=== PATIENT | male | born 1955 | race Caucasian/White ===

== ENCOUNTER → 2017-01-26 | Outpatient (CLI) | payer BC ==
--- NOTE | 2017-01-26 15:01 | CR ---
EXAMINATION: Left shoulder HISTORY: Pain COMPARISON: None TECHNIQUE: 3 views FINDINGS/IMPRESSION: No acute osseous abnormality, dislocation, or fracture identified. Bone mineral ization appears normal. Mild acromioclavicular and glenohumeral osteophytic changes.
== END ==
LOC: MW.CHORTHO 07:38
PROVIDERS: ATTEND Orthopaedic Surgery
DX: M25.512 Pain in left shoulder (principal); M25.712 Osteophyte, left shoulder
CPT/HCPCS: 73030-26-LT; 73030-LT

== ENCOUNTER 2017-08-11 14:57 | Emergency (ER) | payer BC ==
[2017-08-11] MEDS ORDERED: Sodium Chloride 0.9% 1,000 ML IV ONE ×2 (15:07→16:04)
--- NOTE | 2017-08-11 15:08 | EDM.PDOC ---
ED HPI GENERAL MEDICAL PROBLEM - General Stated Complaint: HIGH BP Time Seen by Provider: 08/11/17 15:07 Source of Information: Reports: Patient - History of Present Illness INITIAL COMMENTS - FREE TEXT/NARRATIVE: HISTORY AND PHYSICAL: History of present illness: [Patient presents from the clinic where he was at a visit for depression his blood pressure is noted at 77/50. No other symptoms such as fever nausea vomiting chills sweats no chest pain shortness breath headache dizziness palpitation about a urine symptoms He is on some antihypertensive medications and tamsulosin he is been on these for some time and has been stable, he had dry lips and oral mucosa fluid hydration was provided here in the ER and patient is offered an admission observation to see if needs medication adjustment he was mildly dehydrated but patient refuses admission as he has no other symptoms his blood pressure is straight without orthostatics are on file. ] Review of systems: As per history of present illness and below otherwise all systems reviewed and negative. Past medical history: As per history of present illness and as reviewed below otherwise noncontributory. Surgical history: As per history of present illness and as reviewed below otherwise noncontributory. Social history: No reported history of drug or alcohol abuse. Family history: As per history of present illness and as reviewed below otherwise noncontributory. Physical exam: HEENT: Atraumatic, normocephalic, pupils reactive, negative for conjunctival pallor or scleral icterus, mucous membranes moist, throat clear, neck supple, nontender, trachea midline. Lungs: Clear to auscultation, breath sounds equal bilaterally, chest nontender. Heart: S1S2, regular, negative for clicks, rubs, or JVD. Abdomen: Soft, nondistended, nontender. Negative for masses or hepatosplenomegaly. Negative for costovertebral tenderness. Pelvis: Stable nontender. Genitourinary: Deferred. Rectal: Deferred. Extremities: Atraumatic, negative for cords or calf pain. Neurovascular unremarkable. Neuro: Awake, alert, oriented. Cranial nerves II through XII unremarkable. Cerebellum unremarkable. Motor and sensory unremarkable throughout. Exam nonfocal. Diagnostics: []Lab as below EKG Chest 1 view Therapeutics: []Liter normal saline bolus Patient refuses hospital admission at this time stating he will return if any symptoms develop Impression: Hypo-hypotension resolved Mild dehydration Definitive disposition and diagnosis as appropriate pending reevaluation and review of above. - Related Data Allergies Allergy/AdvReac Type Severity Reaction Status Date / Time No Known Allergies Allergy Verified 04/11/16 14:22 Home Meds: Home Meds Aspirin [Children's Aspirin] 81 mg PO DAILY 08/11/17 [History] Buprenorphine HCl/Naloxone HCl [Suboxone 4 mg-1 mg Sl Film] 300 mg PO BID [History] Gabapentin [Neurontin] 300 mg PO BID 08/11/17 [History] Losartan/Hydrochlorothiazide [Losartan-HCTZ 100-12.5 MG] 1 tab PO DAILY [History] Melatonin 3 mg PO DAILY 08/11/17 [History] QUEtiapine Fumarate [Quetiapine Fumarate] 75 mg PO BID 08/11/17 [History] Simvastatin [Zocor] 20 mg PO DAILY 08/11/17 [History] Tamsulosin Hcl [IJD: Tamsulosin HCl] 1 tab PO DAILY 08/11/17 [History] ED ROS GENERAL - Review of Systems Review Of Systems: ROS reveals no pertinent complaints other than HPI. ED EXAM, GENERAL - Physical Exam Exam: See Below Course - Vital Signs Last Recorded V/S: Last Vital Signs Temp 98.3 F 08/11/17 15:22 Pulse 76 08/11/17 16:36 Resp 12 08/11/17 16:36 BP 103/65 08/11/17 16:36 Pulse Ox 96 08/11/17 16:36 Orthostatic Blood Pressure [ 116/73 Standing] Orthostatic Blood Pressure [ 106/71 Sitting] Orthostatic Blood Pressure [ 115/74 Supine] - Orders/Labs/Meds Orders: Active Orders 24 hr Category Date Time Status EKG Documentation Completion [RC] STAT Care 08/11/17 15:10 Active Orthostatic Vital Signs [RC] ASDIRECTED Care 08/11/17 16:30 Active Chest 1V Frontal [CR] Stat Exams 08/11/17 15:10 Taken CULTURE BLOOD [BC] Stat Lab 08/11/17 15:16 Received CULTURE BLOOD [BC] Stat Lab 08/11/17 15:26 Received UA W/MICROSCOPIC [URIN] Stat Lab 08/11/17 15:05 Uncollected Blood Culture x2 Reflex Set [OM.PC] Stat Oth 08/11/17 15:05 Ordered Labs: Laboratory Tests 08/11/17 08/11/17 08/11/17 Range/Units 15:16 15:16 15:16 WBC 6.31 (4.0-11.0) K/uL RBC 4.36 L (4.50-5.90) M/uL Hgb 13.4 (13.0-17.0) g/dL Hct 41.2 (38.0-50.0) % MCV 94.5 (80.0-98.0) fL MCH 30.7 (27.0-32.0) pg MCHC 32.5 (31.0-37.0) g/dL RDW Std Deviation 44.8 (28.0-62.0) fl RDW Coeff of [place] 13 (11.0-15.0) % Plt Count 254 (150-400) K/uL MPV 9.70 (7.40-12.00) fL Neut % (Auto) 57.5 (48.0-80.0) % Lymph % (Auto) 26.5 (16.0-40.0) % [place] % (Auto) 10.9 (0.0-15.0) % Eos % (Auto) 4.8 (0.0-7.0) % Baso % (Auto) 0.3 (0.0-1.5) % Neut # (Auto) 3.6 (1.4-5.7) K/uL Lymph # (Auto) 1.7 (0.6-2.4) K/uL [place] # (Auto) 0.7 (0.0-0.8) K/uL Eos # (Auto) 0.3 (0.0-0.7) K/uL Baso # (Auto) 0.0 (0.0-0.1) K/uL Nucleated RBC % 0.0 /100WBC Nucleated RBCs # 0 K/uL Lactate 1.3 (0.20-2.00) mmol/L Sodium 139 (136-146) mmol/L Potassium 4.2 (3.5-5.1) mmol/L Chloride 102 (98-110) mmol/L Carbon Dioxide 28 (21-31) mmol/L BUN 16 (6.0-23.0) mg/dL Creatinine 1.1 (0.6-1.5) mg/dL Est Cr Clr Drug Dosing TNP Estimated GFR (MDRD) > 60.0 ml/min Glucose 96 (60-110) mg/dL Calcium 9.3 (8.8-10.8) mg/dL Total Bilirubin 0.5 (0.1-1.5) mg/dL AST 16 (5-40) IU/L ALT 15 (8-54) IU/L Alkaline Phosphatase 53 (40-150) Creatine Kinase 127 (9-236) IU/L CK-MB (CK-2) 1.7 (0-6.6) ng/ml Troponin I < 0.10 (0.0-0.29) NG/ML Total Protein 6.9 (6.0-8.0) g/dL Albumin 4.1 (3.4-4.8) g/dL Globulin 2.8 (2.0-3.5) g/dL Albumin/Globulin Ratio 1.5 (1.3-2.8) Meds: Medications Discontinued Medications Generic Name Dose Route Start Last Admin Trade Name Freq PRN Reason Stop Dose Admin Sodium Chloride 1,000 mls @ 999 mls/hr 08/11/17 15:07 08/11/17 16:31 Normal Saline IV 08/11/17 16:07 999 mls/hr STAT ONE Administration Sodium Chloride 1,000 mls @ 999 mls/hr 08/11/17 16:04 08/11/17 16:32 Normal Saline IV 08/11/17 17:04 999 mls/hr STAT ONE Administration Departure - Departure Time of Disposition: 17:41 Disposition: Home, Self-Care 01 Condition: Good, Fair Clinical Impression: Hypotension, Dehydration - Discharge Information Referrals: Sarah Norman [employer] [Primary Care Provider] - Additional Instructions: Fluid hydration techniques as discussed Follow-up with her primary care within 2 weeks for reevaluation Return to the emergency room if symptoms persist or worsen or new concerning symptoms develop The following information is given to patients seen in the emergency department who are being discharged to home. This information is to outline your options for follow-up care. We provide all patients seen in our emergency department with a follow-up referral. The need for follow-up, as well as the timing and circumstances, are variable depending upon the specifics of your emergency department visit. If you don't have a primary care physician on staff, we will provide you with a referral. We always advise you to contact your personal physician following an emergency department visit to inform them of the circumstance of the visit and for follow-up with them and/or the need for any referrals to a consulting specialist. The emergency department will also refer you to a specialist when appropriate. This referral assures that you have the opportunity for follow-up care with a specialist. All of these measure are taken in an effort to provide you with optimal care, which includes your follow-up. Under all circumstances we always encourage you to contact your private physician who remains a resource for coordinating your care. When calling for follow-up care, please make the office aware that this follow-up is from your recent emergency room visit. If for any reason you are refused follow-up, please contact the [facility] emergency department at and asked to speak to the emergency department charge nurse. - My Orders Last 24 Hours: My Active Orders 08/11/17 15:05 UA W/MICROSCOPIC [URIN] Stat Blood Culture x2 Reflex Set [OM.PC] Stat 08/11/17 15:10 EKG Documentation Completion [RC] STAT Chest 1V Frontal [CR] Stat 08/11/17 15:16 CULTURE BLOOD [BC] Stat 08/11/17 15:26 CULTURE BLOOD [BC] Stat 08/11/17 16:30 Orthostatic Vital Signs [RC] ASDIRECTED - Assessment/Plan Last 24 Hours: My Active Orders 08/11/17 15:05 UA W/MICROSCOPIC [URIN] Stat Blood Culture x2 Reflex Set [OM.PC] Stat 08/11/17 15:10 EKG Documentation Completion [RC] STAT Chest 1V Frontal [CR] Stat 08/11/17 15:16 CULTURE BLOOD [BC] Stat 08/11/17 15:26 CULTURE BLOOD [BC] Stat 08/11/17 16:30 Orthostatic Vital Signs [RC] ASDIRECTED
[2017-08-11 15:53] LABS: CHLORIDE,CL 102 mmol/L (98-110); SODIUM,NA 139 mmol/L (136-146)
--- NOTE | 2017-08-13 05:53 | CR ---
EXAM DATE: 08/11/17 PATIENT'S AGE: 62 Patient: DAVE WEISS Facility: [place], [place] Site . Site : [id number] Study: XRay Chest [id number] 3:56:06 PM Ordering Physician: Gaviota Dickerson Final Report: INDICATION: Hypertension TECHNIQUE: Chest 1 view. COMPARISON: None FINDINGS: Cardiovascular and mediastinum: Heart size and vasculature are normal in caliber and appearance. Mediastinum is within normal limits. Lungs and pleural space: Minimal atelectasis left lower lobe. No sign of infiltrate or mass. No sign of pleural effusion. No pneumothorax. Bones and soft tissues: No significant findings. IMPRESSION: Unremarkable chest. Dictated by Edson Erazo MD @ 08/11/2017 4:06:52 PM Dictated by: Edson Erazo MD @ 08/11/2017 16:07:25 (Electronic Signature) Report Signed by Proxy. [facility]
== END 2017-08-11 17:59 | disposition home or self-care (01) ==
LOC: MW.ED 14:57
DX: I95.9 Hypotension, unspecified (principal); E86.0 Dehydration; Z79.82 Long term (current) use of aspirin; Z79.899 Other long term (current) drug therapy
CPT/HCPCS: 36415; 71010; 80053; 81001; 82550; 82553; 83605; 84484; 85025; 87040; 93005; 96360; 96361; 99285; J7040; 87077; 87186; 99283

== ENCOUNTER 2017-08-12 11:42 | Observation (INO) | payer BC ==
--- NOTE | 2017-08-12 11:55 | EDM.PDOC ---
ED HPI GENERAL MEDICAL PROBLEM - General Stated Complaint: LAB Time Seen by Provider: 08/12/17 11:53 Source of Information: Reports: Patient History Limitations: Reports: No Limitations - History of Present Illness INITIAL COMMENTS - FREE TEXT/NARRATIVE: HISTORY AND PHYSICAL: []62-year-old male who presented yesterday for hypotension given fluids diagnosed with dehydration History of Present Illness: []What cultures today are returned for gram positive cocci Review of Systems: As per history of present illness and below otherwise all systems reviewed and negative. Past medical history: As per history of present illness and as reviewed below otherwise noncontributory. Surgical history: As per history of present illness and as reviewed below otherwise noncontributory. Social history: No reported history of drug or alcohol abuse. Family history: As per history of present illness and as reviewed below otherwise noncontributory. Physical exam: Alert and oriented male. Answering questions appropriately in full sentences denies any difficulties. HEENT: Atraumatic, normocehpalic, pupils reactive, negative for conjunctival pallor or scleral icterus, mucous membranes dry. throat clear, neck supple, nontender, trachea midline. Lungs: Clear to auscultation, breath sounds equal bilaterally, chest non tender. Heart: S1S2, regular, negative for clicks, rubs, or JVD. Abdomen: Soft, nondistended, nontender. Negative for masses or hepatossplenmegaly. Negative for costovertebral tenderness. Pelvis: Stable nontender. Genitourinary: Deferred. Rectal: Deferred Extremities: Atraumatic, negative for cords or calf pain. Neurovascular unremarkable. Neuro: Awake, alert, oriented. Cranial nerves II through XII unremarkable. Cerebellum unremarkable. Motor and sensory unremarkable throughout. Exam nonfocal. Have consulted with Dr. Mathis guarding this patient and his call back will go ahead and obtain blood cultures chemistry lactic acid Levaquin will be given IV and reevaluate closely Zosyn will be given IV Discussed this case with the hospitalist Dr. Solorzano has agreed to refer to observation on this patient Diagnostics: []CBC CMP lactic acid blood cultures 2 Therapeutics: [500 fluid] Levaquin 750 IV Impression: [Bacteremia Rule out sepsis] Plan: [Refer for observation on telemetry] Definitive disposition and diagnosis as appropriate pending reevaluation and review of above. Duration: Day(s): - Related Data Allergies Allergy/AdvReac Type Severity Reaction Status Date / Time No Known Allergies Allergy Verified 08/12/17 12:19 Home Meds: Home Meds Aspirin [Children's Aspirin] 81 mg PO DAILY 08/11/17 [History] Buprenorphine HCl/Naloxone HCl [Suboxone 4 mg-1 mg Sl Film] 300 mg PO BID [History] Gabapentin [Neurontin] 300 mg PO BID 08/11/17 [History] Losartan/Hydrochlorothiazide [Losartan-HCTZ 100-12.5 MG] 1 tab PO DAILY [History] Melatonin 3 mg PO DAILY 08/11/17 [History] QUEtiapine Fumarate [Quetiapine Fumarate] 75 mg PO BID 08/11/17 [History] Simvastatin [Zocor] 20 mg PO DAILY 08/11/17 [History] Tamsulosin Hcl [IJD: Tamsulosin HCl] 1 tab PO DAILY 08/11/17 [History] Past Medical History Cardiovascular History: Reports: High Cholesterol, Hypertension Genitourinary History: Reports: BPH Musculoskeletal History: Reports: Back Pain, Chronic Psychiatric History: Reports: Depression Social & Family History - Family History Family Medical History: Noncontributory - Caffeine Use Caffeine Use: Reports: None - Recreational Drug Use Recreational Drug Use: No ED ROS GENERAL - Review of Systems Review Of Systems: ROS reveals no pertinent complaints other than HPI. ED EXAM, GENERAL - Physical Exam Exam: See Below Course - Vital Signs Last Recorded V/S: Last Vital Signs Temp 36.6 C 08/12/17 12:05 Pulse 78 08/12/17 13:25 Resp 18 08/12/17 13:25 BP 100/70 08/12/17 13:25 Pulse Ox 96 08/12/17 13:25 - Orders/Labs/Meds Orders: Active Orders 24 hr Category Date Time Status CULTURE BLOOD [BC] Stat Lab 08/12/17 12:21 Received CULTURE BLOOD [BC] Stat Lab 08/12/17 12:27 Received CULTURE URINE [RM] Stat Lab 08/12/17 13:00 Received Blood Culture x2 Reflex Set [OM.PC] Stat Oth 08/12/17 12:02 Ordered Labs: Laboratory Tests 08/12/17 08/12/17 08/12/17 Range/Units 12:04 12:04 12:04 WBC 5.57 (4.0-11.0) K/uL RBC 4.30 L (4.50-5.90) M/uL Hgb 13.3 (13.0-17.0) g/dL Hct 41.0 (38.0-50.0) % MCV 95.3 (80.0-98.0) fL MCH 30.9 (27.0-32.0) pg MCHC 32.4 (31.0-37.0) g/dL RDW Std Deviation 45.1 (28.0-62.0) fl RDW Coeff of [place] 13 (11.0-15.0) % Plt Count 249 (150-400) K/uL MPV 10.10 (7.40-12.00) fL Neut % (Auto) 52.8 (48.0-80.0) % Lymph % (Auto) 30.3 (16.0-40.0) % [place] % (Auto) 9.7 (0.0-15.0) % Eos % (Auto) 6.3 (0.0-7.0) % Baso % (Auto) 0.9 (0.0-1.5) % Neut # (Auto) 2.9 (1.4-5.7) K/uL Lymph # (Auto) 1.7 (0.6-2.4) K/uL [place] # (Auto) 0.5 (0.0-0.8) K/uL Eos # (Auto) 0.4 (0.0-0.7) K/uL Baso # (Auto) 0.1 (0.0-0.1) K/uL Nucleated RBC % 0.0 /100WBC Nucleated RBCs # 0 K/uL Lactate 2.5 H (0.20-2.00) mmol/L Sodium 142 (136-146) mmol/L Potassium 4.2 (3.5-5.1) mmol/L Chloride 105 (98-110) mmol/L Carbon Dioxide 28 (21-31) mmol/L BUN 12 (6.0-23.0) mg/dL Creatinine 0.8 (0.6-1.5) mg/dL Est Cr Clr Drug Dosing 97.59 mL/min Estimated GFR (MDRD) > 60.0 ml/min Glucose 102 (60-110) mg/dL Calcium 9.2 (8.8-10.8) mg/dL Total Bilirubin 0.3 (0.1-1.5) mg/dL AST 15 (5-40) IU/L ALT 15 (8-54) IU/L Alkaline Phosphatase 59 (40-150) Total Protein 6.8 (6.0-8.0) g/dL Albumin 4.0 (3.4-4.8) g/dL Globulin 2.8 (2.0-3.5) g/dL Albumin/Globulin Ratio 1.4 (1.3-2.8) Urine Color Urine Appearance Urine pH (5.0-8.0) Ur Specific [place] (1.001-1.035) Urine Protein (NEGATIVE) mg/dL Urine Glucose (UA) (NEGATIVE) mg/dL Urine Ketones (NEGATIVE) mg/dL Urine Occult Blood (NEGATIVE) Urine Nitrite (NEGATIVE) Urine Bilirubin (NEGATIVE) Urine Urobilinogen (<2.0) EU/dL Ur Leukocyte Esterase (NEGATIVE) Urine RBC (0-2/HPF) Urine WBC (0-5/HPF) Ur Epithelial Cells (NONE-FEW) Urine Bacteria (NEGATIVE) 08/12/17 Range/Units 13:00 WBC (4.0-11.0) K/uL RBC (4.50-5.90) M/uL Hgb (13.0-17.0) g/dL Hct (38.0-50.0) % MCV (80.0-98.0) fL MCH (27.0-32.0) pg MCHC (31.0-37.0) g/dL RDW Std Deviation (28.0-62.0) fl RDW Coeff of [place] (11.0-15.0) % Plt Count (150-400) K/uL MPV (7.40-12.00) fL Neut % (Auto) (48.0-80.0) % Lymph % (Auto) (16.0-40.0) % [place] % (Auto) (0.0-15.0) % Eos % (Auto) (0.0-7.0) % Baso % (Auto) (0.0-1.5) % Neut # (Auto) (1.4-5.7) K/uL Lymph # (Auto) (0.6-2.4) K/uL [place] # (Auto) (0.0-0.8) K/uL Eos # (Auto) (0.0-0.7) K/uL Baso # (Auto) (0.0-0.1) K/uL Nucleated RBC % /100WBC Nucleated RBCs # K/uL Lactate (0.20-2.00) mmol/L Sodium (136-146) mmol/L Potassium (3.5-5.1) mmol/L Chloride (98-110) mmol/L Carbon Dioxide (21-31) mmol/L BUN (6.0-23.0) mg/dL Creatinine (0.6-1.5) mg/dL Est Cr Clr Drug Dosing mL/min Estimated GFR (MDRD) ml/min Glucose (60-110) mg/dL Calcium (8.8-10.8) mg/dL Total Bilirubin (0.1-1.5) mg/dL AST (5-40) IU/L ALT (8-54) IU/L Alkaline Phosphatase (40-150) Total Protein (6.0-8.0) g/dL Albumin (3.4-4.8) g/dL Globulin (2.0-3.5) g/dL Albumin/Globulin Ratio (1.3-2.8) Urine Color YELLOW Urine Appearance CLEAR Urine pH 6.5 (5.0-8.0) Ur Specific [place] <= 1.005 (1.001-1.035) Urine Protein NEGATIVE (NEGATIVE) mg/dL Urine Glucose (UA) NEGATIVE (NEGATIVE) mg/dL Urine Ketones NEGATIVE (NEGATIVE) mg/dL Urine Occult Blood NEGATIVE (NEGATIVE) Urine Nitrite NEGATIVE (NEGATIVE) Urine Bilirubin NEGATIVE (NEGATIVE) Urine Urobilinogen 0.2 (<2.0) EU/dL Ur Leukocyte Esterase NEGATIVE (NEGATIVE) Urine RBC 0-2 (0-2/HPF) Urine WBC NONE SEEN (0-5/HPF) Ur Epithelial Cells RARE (NONE-FEW) Urine Bacteria RARE (NEGATIVE) Meds: Medications Discontinued Medications Generic Name Dose Route Start Last Admin Trade Name Freq PRN Reason Stop Dose Admin Sodium Chloride 500 mls @ 999 mls/hr 08/12/17 11:59 08/12/17 12:12 Normal Saline IV 08/12/17 12:29 999 mls/hr STAT ONE Administration Levofloxacin/Dextrose 750 mg/ 150 mls @ 100 mls/hr 08/12/17 12:00 08/12/17 12 :11 Premix IV 08/12/17 13:29 100 mls/hr ONETIME ONE Administration Departure - Departure Time of Disposition: 14:24 Disposition: Refer to Observation Condition: Good Clinical Impression: Bacteremia Hypotension Qualifiers: Hypotension type: unspecified hypotension type Qualified Code(s): I95.9 - Hypotension, unspecified - Discharge Information - My Orders Last 24 Hours: My Active Orders 08/12/17 12:02 Blood Culture x2 Reflex Set [OM.PC] Stat 08/12/17 12:21 CULTURE BLOOD [BC] Stat 08/12/17 12:27 CULTURE BLOOD [BC] Stat 08/12/17 13:00 CULTURE URINE [RM] Stat - Assessment/Plan Last 24 Hours: My Active Orders 08/12/17 12:02 Blood Culture x2 Reflex Set [OM.PC] Stat 08/12/17 12:21 CULTURE BLOOD [BC] Stat 08/12/17 12:27 CULTURE BLOOD [BC] Stat 08/12/17 13:00 CULTURE URINE [RM] Stat
[2017-08-12] MEDS ORDERED: Sodium Chloride 0.9% 500 ML IV ONE (11:59)
[2017-08-12] MEDS ORDERED: Levofloxacin/Dextrose 5%-Water 750 MG in Premix Bag 1 BAG IV ONE (12:00)
[2017-08-12 12:33] LABS: CHLORIDE,CL 105 mmol/L (98-110); SODIUM,NA 142 mmol/L (136-146)
[2017-08-12] MEDS ORDERED: Piperacillin/Tazobactam 3.375 GM in Sodium Chloride 0.9% 50 ML IV ONE (14:20)
--- NOTE | 2017-08-12 17:14 | PCM.HP ---
H&P History of Present Illness - General Date of Service: 08/12/17 Admit Problem/Dx: Admission Diagnosis/Problem Admission Diagnosis/Problem Hypotension determined by examination Source of Information: Patient, Provider - History of Present Illness Initial Comments - Free Text/Narative: Patient is a 62 y old man wit PMHx of psych disorder and opioid abuse , currently on treatment with suboxane and multiple psych medications was sent to Er by his doctor due to hypotension in the 80' in the office , patient also stated he was feeling very lightheaded throughout the day . In Er patient had work up for sepsis that was negative , blood cultures were drawn and he was given Iv fluids. Today Microbiology lab called because patient grew in one bottle gram positive cocci in chains and he was asked to come back. Patient was found to have lactate of 2.5 .He is also c/o feeling cold. Patient was given in ER iv levaquin and zosyn. denies any pain Pain Score (Numeric/FACES): 0 - Related Data Allergies/Adverse Reactions: Allergies Allergy/AdvReac Type Severity Reaction Status Date / Time No Known Allergies Allergy Verified 08/12/17 12:19 Home Medications: Home Meds Aspirin [Children's Aspirin] 81 mg PO DAILY 08/11/17 [History] Melatonin 3 mg PO DAILY 08/11/17 [History] QUEtiapine Fumarate [Quetiapine Fumarate] 75 mg PO BID 08/11/17 [History] Simvastatin [Zocor] 20 mg PO BEDTIME 08/11/17 [History] Tamsulosin Hcl [IJD: Tamsulosin HCl] 0.4 mg PO DAILY 08/11/17 [History] ARIPiprazole [Aripiprazole] 10 mg PO DAILY 08/12/17 [History] Buprenorphine HCl/Naloxone HCl [Buprenorphn-Naloxn 2-0.5 mg Sl] 0.5 tab SL DAILY 08/12/17 [History] Gabapentin [Neurontin] 600 mg PO BID 08/12/17 [History] Losartan [Cozaar] 100 mg PO DAILY 08/12/17 [History] Mirtazapine [Mirtazapine] 30 mg PO BEDTIME 08/12/17 [History] Past Medical History HEENT History: Reports: None Cardiovascular History: Reports: High Cholesterol, Hypertension Respiratory History: Reports: None Gastrointestinal History: Reports: None Genitourinary History: Reports: BPH Musculoskeletal History: Reports: Back Pain, Chronic Neurological History: Reports: None Psychiatric History: Reports: Depression Endocrine/Metabolic History: Reports: None Hematologic History: Reports: None Immunologic History: Reports: None Oncologic (Cancer) History: Reports: None Dermatologic History: Reports: None - Infectious Disease History Infectious Disease History: Reports: None - Past Surgical History Head Surgeries/Procedures: Reports: None Social & Family History - Family History Family Medical History: Noncontributory - Tobacco Use Smoking Status *Q: Never Smoker Used Tobacco, but Quit: No Second Hand Smoke Exposure: No - Caffeine Use Caffeine Use: Reports: Coffee - Recreational Drug Use Recreational Drug Use: No H&P Review of Systems - Review of Systems: Review Of Systems: See Below General: Reports: Other (feeling cold) HEENT: Reports: No Symptoms Pulmonary: Reports: No Symptoms Cardiovascular: Reports: No Symptoms Gastrointestinal: Reports: No Symptoms Genitourinary: Reports: No Symptoms Musculoskeletal: Reports: No Symptoms Skin: Reports: No Symptoms Psychiatric: Reports: Other (flat affect) Immunologic: Reports: No Symptoms Exam - Exam Exam: See Below - Vital Signs Vital Signs: Last Vital Signs Temp 97.8 F 08/12/17 12:05 Pulse 78 08/12/17 13:25 Resp 18 08/12/17 13:25 BP 100/70 08/12/17 13:25 Pulse Ox 96 08/12/17 13:25 Weight: 176 lb 12.972 oz - Exam General: Alert, Oriented HEENT: Conjunctiva Clear, EACs Clear, EOMI Neck: Supple, Trachea Midline Lungs: Clear to Auscultation, Normal Respiratory Effort Cardiovascular: Regular Rate, Regular Rhythm, Normal S1, Normal S2 GI/Abdominal Exam: Normal Bowel Sounds, Soft, Non-Tender Extremities: Normal Inspection Skin: Warm, Dry Neurological: Cranial Nerves Intact Neuro Extensive - Mental Status: Alert, Oriented x3, Normal Mood/Affect, Normal Cognition Neuro Extensive - Motor, Sensory, Reflexes: CN II-XII Intact, Normal Gait Psychiatric: Alert, Normal Affect, Normal Mood - Patient Data Result Diagrams: 08/12/17 12:04 08/12/17 12:04 EKG INTERPRETATION EKG Date: 08/12/17 *Q Meaningful Use (ADM) - VTE *Q VTE Criteria *Q: - Stroke *Q Stroke Criteria *Q: - AMI *Q AMI Criteria *Q: - Problem List (1) Positive blood cultures SNOMED Code(s): 739716215 ICD Code: R78.81 - BACTEREMIA Status: Acute Current Visit: Yes (2) Blood culture positive for microorganism SNOMED Code(s): 5242729911399101 ICD Code: R79.89 - OTHER SPECIFIED ABNORMAL FINDINGS OF BLOOD CHEMISTRY Status: Acute Current Visit: Yes (3) Elevated lactic acid level SNOMED Code(s): 6081866 ICD Code: R79.89 - OTHER SPECIFIED ABNORMAL FINDINGS OF BLOOD CHEMISTRY Status: Acute Current Visit: Yes Problem List Initiated/Reviewed/Updated: Yes Orders Last 24hrs: Active Orders 24 hr Category Date Time Status Patient Status [ADT] Routine ADT 08/12/17 17:07 Active Antiembolic Devices [RC] PER UNIT ROUTINE Care 08/12/17 17:11 Active Bedrest Bathroom Privileges [RC] ASDIRECTED Care 08/12/17 17:07 Active Oxygen Therapy [RC] PRN Care 08/12/17 17:07 Active Pulse Oximetry [RC] PRN Care 08/12/17 17:09 Active Telemetry Monitoring [Cardiac Monitoring] [RC] Q8H Care 08/12/17 14:32 Active VTE/DVT Education [RC] PER UNIT ROUTINE Care 08/12/17 17:07 Active Vital Signs [RC] Q4H Care 08/12/17 17:07 Active 2 Gram Sodium Diet [DIET] Diet 08/12/17 Breakfast Active 2 Gram Sodium Diet [DIET] Diet 08/12/17 Dinner Active CBC WITH AUTO DIFF [HEME] AM Lab 08/13/17 05:11 Ordered COMPREHENSIVE METABOLIC PN,CMP [CHEM] AM Lab 08/13/17 05:11 Ordered LACTIC ACID,WHOLE BLOOD [BG] Routine Lab 08/12/17 17:13 Ordered ARIPiprazole [Abilify] Med 08/13/17 09:00 Ordered 10 mg PO DAILY Aspirin Med 08/13/17 09:00 Ordered 81 mg PO DAILY Buprenorphine HCl/Naloxone HCl [Buprenorphn-Naloxn 2-0. Med 08/13/17 09:00 Ordered 5 mg Sl] 0.5 tab SL DAILY Enoxaparin [Lovenox] Med 08/13/17 09:00 Ordered 40 mg SUBCUT DAILY Gabapentin Med 08/12/17 21:00 Ordered 600 mg PO BID Losartan Med 08/13/17 09:00 Ordered 100 mg PO DAILY Melatonin [Melatonin] Med 08/13/17 09:00 Ordered 3 mg PO DAILY Mirtazapine Med 08/12/17 21:00 Ordered 30 mg PO BEDTIME QUEtiapine [SEROquel] Med 08/12/17 21:00 Ordered 75 mg PO BID Simvastatin [Zocor] Med 08/12/17 21:00 Ordered 20 mg PO BEDTIME Tamsulosin [Flomax] Med 08/13/17 09:00 Ordered 0.4 mg PO DAILY Antiembolic Hose [OM.PC] Per Unit Routine Oth 08/12/17 17:10 Ordered Resuscitation Status Routine Resus Stat 08/12/17 17:07 Ordered Medication Orders Aripiprazole (Abilify) 10 mg PO DAILY [facility] Aspirin (Aspirin) 81 mg PO DAILY [facility] Enoxaparin Sodium (Lovenox) 40 mg SUBCUT DAILY [facility] Non-Formulary Medication (Gabapentin) 600 mg PO BID [facility] Non-Formulary Medication (Mirtazapine) 30 mg PO BEDTIME [facility] Non-Formulary Medication (Buprenorphine Hcl/Naloxone Hcl [Buprenorphn-Naloxn 2- 0.5 Mg Sl]) 0.5 tab SL DAILY [facility] Non-Formulary Medication (Losartan) 100 mg PO DAILY [facility] Non-Formulary Medication (Melatonin [Melatonin]) 3 mg PO DAILY [facility] Quetiapine Fumarate (Seroquel) 75 mg PO BID [facility] Simvastatin (Zocor) 20 mg PO BEDTIME [facility] Tamsulosin HCl (Flomax) 0.4 mg PO DAILY [facility] Cxr neg Assessment/Plan Comment:: a/P Positive BC one bottle lactic acidosis hypotension Psych D/o Lightheadedness admit patient to observation iv fluids f/up Lactic acid level f/up blood culture report tomorrow. If only one bottle growth, will d/c pat If both bottle positive BC will continue with antib. Monitor patient in telemetry Othostatic Vs Cardiac echo
[2017-08-12] MEDS ORDERED: Sodium Chloride 0.45% 1,000 ML IV SCH (17:15)
[2017-08-12] MEDS ORDERED: Melatonin 3 MG Tab PO SCH (21:00)
[2017-08-12] MEDS ORDERED: Simvastatin 20 MG Tab PO SCH (21:00)
[2017-08-12] MEDS ORDERED: Mirtazapine 15 MG Tab PO SCH (21:00)
[2017-08-12] MEDS: Gabapentin 300 MG Cap PO SCH (21:58)
[2017-08-12] MEDS: QUEtiapine 25 MG Tab PO SCH (21:59)
[2017-08-13 06:28] LABS: CHLORIDE,CL 107 mmol/L (98-110); SODIUM,NA 141 mmol/L (136-146)
[2017-08-13] MEDS: Gabapentin 300 MG Cap PO SCH (08:39)
[2017-08-13] MEDS ORDERED: Enoxaparin 40 MG/0.4 ML Syringe SUBCUT SCH (09:00)
[2017-08-13] MEDS ORDERED: BUPRENORPHINE PO SCH (09:00)
[2017-08-13] MEDS ORDERED: Aspirin 81 MG Tab.Chew PO SCH (09:00)
[2017-08-13] MEDS ORDERED: ARIPiprazole 10 MG Tab PO SCH (09:00)
[2017-08-13] MEDS ORDERED: NALOXONE PO SCH (09:00)
[2017-08-13] MEDS ORDERED: Tamsulosin 0.4 MG Cap.ER PO SCH (09:00)
[2017-08-13] MEDS ORDERED: Losartan 50 MG Tab PO SCH (09:00)
[2017-08-13] MEDS: QUEtiapine 25 MG Tab PO SCH (10:07)
--- NOTE | 2017-08-13 13:56 | PCM.DCSUM1 ---
Discharge Summary - Hospital Course Free Text/Narrative:: Patient admitted with the following problems:Positive BC one bottle lactic acidosis, hypotension, Psych D/o, Lightheadedness Patient had Iv fluids , othostatic vital signs showed orthostatic hypotension , patient repeat orthostatic vs after iv fluids showed that the orthostatic hypotension resolved. Patient Bc showed no growth in the second bottle, patient afebrile , his repeat lactic acid decreased bellow 2. patient Losartan was decreased to 25 mg po daily and patient was given f/up with PCP , also to follow up the BC results drown in ER the second day. HPI Initial Comments: Patient is a 62 y old man wit PMHx of psych disorder and opioid abuse , currently on treatment with suboxane and multiple psych medications was sent to Er by his doctor due to hypotension in the 80' in the office , patient also stated he was feeling very lightheaded throughout the day . In Er patient had work up for sepsis that was negative , blood cultures were drawn and he was given Iv fluids. Today Microbiology lab called because patient grew in one bottle gram positive cocci in chains and he was asked to come back. Patient was found to have lactate of 2.5 .He is also c/o feeling cold. Patient was given in ER iv levaquin and zosyn. - Discharge Data Discharge Date: 08/13/17 Discharge Disposition: Home, Self-Care 01 Condition: Fair - Discharge Diagnosis/Problem(s) (1) Positive blood cultures SNOMED Code(s): 491427421 ICD Code: R78.81 - BACTEREMIA Status: Acute (2) Blood culture positive for microorganism SNOMED Code(s): 1260420417986619 ICD Code: R79.89 - OTHER SPECIFIED ABNORMAL FINDINGS OF BLOOD CHEMISTRY Status: Acute (3) Elevated lactic acid level SNOMED Code(s): 9460539 ICD Code: R79.89 - OTHER SPECIFIED ABNORMAL FINDINGS OF BLOOD CHEMISTRY Status: Acute (4) Hypotension SNOMED Code(s): 71715832 ICD Code: I95.9 - HYPOTENSION, UNSPECIFIED Status: Acute Qualifiers: Hypotension type: unspecified hypotension type Qualified Code(s): I95.9 - Hypotension, unspecified - Patient Instructions Diet: Regular Diet as Tolerated Activity: As Tolerated Driving: May Drive Today Showering/Bathing: May Shower - Discharge Plan Prescriptions/Med Rec: Losartan [Cozaar] 25 mg PO DAILY #30 tablet Tamsulosin Hcl [IJD: Tamsulosin HCl] 0.4 mg PO DAILY #30 cap.er.po Home Medications: Home Meds Aspirin [Children's Aspirin] 81 mg PO DAILY 08/11/17 [History] Melatonin 3 mg PO DAILY 08/11/17 [History] QUEtiapine Fumarate [Quetiapine Fumarate] 75 mg PO BID 08/11/17 [History] Simvastatin [Zocor] 20 mg PO BEDTIME 08/11/17 [History] ARIPiprazole [Aripiprazole] 10 mg PO DAILY 08/12/17 [History] Buprenorphine HCl/Naloxone HCl [Buprenorphn-Naloxn 2-0.5 mg Sl] 0.5 film SL DAILY 08/12/17 [History] Gabapentin [Neurontin] 600 mg PO BID 08/12/17 [History] Mirtazapine 30 mg PO BEDTIME 08/12/17 [History] Losartan [Cozaar] 25 mg PO DAILY #30 tablet 08/13/17 [Rx] Tamsulosin Hcl [IJD: Tamsulosin HCl] 0.4 mg PO DAILY #30 cap.er.po 08/13/17 [Rx] Patient Handouts: Orthostatic Hypotension Forms: ED Department Discharge Referrals: PCP,Unknown [Primary Care Provider] - - Discharge Summary/Plan Comment DC Time >30 min.: No - General Info Date of Service: 08/13/17 - Review of Systems General: Reports: No Symptoms HEENT: Reports: No Symptoms Pulmonary: Reports: No Symptoms Cardiovascular: Reports: No Symptoms Gastrointestinal: Reports: No Symptoms Genitourinary: Reports: No Symptoms Musculoskeletal: Reports: No Symptoms Skin: Reports: No Symptoms Neurological: Reports: No Symptoms Psychiatric: Reports: Depression - Patient Data Vitals - Most Recent: Last Vital Signs Temp 98.5 F 08/13/17 08:00 Pulse 91 08/13/17 08:00 Resp 16 08/13/17 08:00 BP 98/61 08/13/17 08:43 Pulse Ox 98 08/13/17 08:00 Orthostatic Blood Pressure [ 98/61 Standing] Orthostatic Blood Pressure [ 108/57 Sitting] Orthostatic Blood Pressure [ 102/57 Supine] Weight - Most Recent: 176 lb 12.972 oz I&O - Last 24 hours: Intake & Output 08/12/17 08/13/1708/13/17 22:59 06:59 14:59 Intake Total 300 Output Total 600 Balance -300 Lab Results - Last 24 hrs: Laboratory Results - last 24 hr 08/12/17 08/13/17 08/13/17 Range/Units 17:29 05:53 05:53 WBC 5.08 (4.0-11.0) K/uL RBC 3.85 L (4.50-5.90) M/uL Hgb 11.7 L (13.0-17.0) g/dL Hct 36.5 L (38.0-50.0) % MCV 94.8 (80.0-98.0) fL MCH 30.4 (27.0-32.0) pg MCHC 32.1 (31.0-37.0) g/dL RDW Std Deviation 44.8 (28.0-62.0) fl RDW Coeff of Paola 13 (11.0-15.0) % Plt Count 222 (150-400) K/uL MPV 9.50 (7.40-12.00) fL Neut % (Auto) 43.5 L (48.0-80.0) % Lymph % (Auto) 40.0 (16.0-40.0) % Coffee % (Auto) 10.2 (0.0-15.0) % Eos % (Auto) 5.5 (0.0-7.0) % Baso % (Auto) 0.8 (0.0-1.5) % Neut # (Auto) 2.2 (1.4-5.7) K/uL Lymph # (Auto) 2.0 (0.6-2.4) K/uL Coffee # (Auto) 0.5 (0.0-0.8) K/uL Eos # (Auto) 0.3 (0.0-0.7) K/uL Baso # (Auto) 0.0 (0.0-0.1) K/uL Nucleated RBC % 0.0 /100WBC Nucleated RBCs # 0 K/uL Lactate 1.5 (0.20-2.00) mmol/L Sodium 141 (136-146) mmol/L Potassium 3.9 (3.5-5.1) mmol/L Chloride 107 (98-110) mmol/L Carbon Dioxide 29 (21-31) mmol/L BUN 10 (6.0-23.0) mg/dL Creatinine 0.8 (0.6-1.5) mg/dL Est Cr Clr Drug Dosing 100.66 mL/min Estimated GFR (MDRD) > 60.0 ml/min Glucose 86 (60-110) mg/dL Calcium 8.8 (8.8-10.8) mg/dL Total Bilirubin 0.6 (0.1-1.5) mg/dL AST 15 (5-40) IU/L ALT 13 (8-54) IU/L Alkaline Phosphatase 42 (40-150) Total Protein 5.8 L (6.0-8.0) g/dL Albumin 3.6 (3.4-4.8) g/dL Globulin 2.2 (2.0-3.5) g/dL Albumin/Globulin Ratio 1.6 (1.3-2.8) Med Orders - Current: Current Medications Discontinued Medications Aripiprazole (Abilify) 10 mg PO DAILY [facility] Last Admin: 08/13/17 08:39 Dose: 10 mg Aspirin (Aspirin) 81 mg PO DAILY [facility] Last Admin: 08/13/17 08:42 Dose: 81 mg Enoxaparin Sodium (Lovenox) 40 mg SUBCUT DAILY [facility] Last Admin: 08/13/17 08:43 Dose: Not Given Gabapentin (Neurontin) 600 mg PO BID [facility] Last Admin: 08/13/17 08:39 Dose: 600 mg Sodium Chloride (Normal Saline) 500 mls @ 999 mls/hr IV STAT ONE Stop: 08/12/17 12:29 Last Admin: 08/12/17 12:12 Dose: 999 mls/hr Levofloxacin/Dextrose 750 mg/ (Premix) 150 mls @ 100 mls/hr IV ONETIME ONE Stop: 08/12/17 13:29 Last Admin: 08/12/17 12:11 Dose: 100 mls/hr Piperacillin Sod/Tazobactam (Sod 3.375 gm/ Sodium Chloride) 50 mls @ 100 mls/ hr IV ONETIME ONE Stop: 08/12/17 14:49 Last Admin: 08/12/17 14:33 Dose: 100 mls/hr Sodium Chloride (Sodium Chloride 0.45%) 1,000 mls @ 75 mls/hr IV ASDIRECTED [facility] Last Admin: 08/12/17 18:51 Dose: 75 mls/hr Losartan Potassium (Cozaar) 100 mg PO DAILY [facility] Last Admin: 08/13/17 08:43 Dose: Not Given Melatonin (Melatonin) 3 mg PO BEDTIME [facility] Last Admin: 08/12/17 21:58 Dose: 3 mg Mirtazapine (Remeron) 30 mg PO BEDTIME [facility] Last Admin: 08/12/17 21:58 Dose: 30 mg Buprenorphine/ (Naloxone 8/2 Film) 0.5 each PO DAILY [facility] Last Admin: 08/13/17 10:07 Dose: Not Given Quetiapine Fumarate (Seroquel) 75 mg PO BID [facility] Last Admin: 08/13/17 10:07 Dose: Not Given Simvastatin (Zocor) 20 mg PO BEDTIME [facility] Last Admin: 08/12/17 21:56 Dose: 20 mg Tamsulosin HCl (Flomax) 0.4 mg PO DAILY [facility] Last Admin: 08/13/17 08:39 Dose: 0.4 mg - Exam General: Reports: Alert, Oriented HEENT: Reports: Pupils Equal, Pupils Reactive Neck: Reports: Supple, Trachea Midline, No JVD Lungs: Reports: Clear to Auscultation, Normal Respiratory Effort Cardiovascular: Reports: Regular Rate, Regular Rhythm, No Murmurs, Irregular Rhythm GI/Abdominal Exam: Normal Bowel Sounds, Soft, Non-Tender, No Organomegaly, No Distention, No Abnormal Bruit, No Mass Extremities: Normal Inspection Skin: Reports: Warm, Dry, Intact Neurological: Reports: No New Focal Deficit Psy/Mental Status: Reports: Alert, Normal Affect *Q Meaningful Use (DIS) - VTE *Q VTE Criteria *Q: - Stroke *Q Stroke Criteria *Q: - AMI *Q AMI Criteria *Q:
== END 2017-08-13 13:20 | disposition home or self-care (01) ==
LOC: MW.ED 11:42 → MW.MS 14:28
PROVIDERS: ADMIT Internal Medicine; ATTEND Internal Medicine
DX: I95.9 Hypotension, unspecified (principal); E87.2 Acidosis; E78.00 Pure hypercholesterolemia, unspecified; F32.9 Major depressive disorder, single episode, unspecified; F11.10 Opioid abuse, uncomplicated; I10 Essential (primary) hypertension; N40.0 Benign prostatic hyperplasia without lower urinary tract symptoms; R78.81 Bacteremia; R79.89 Other specified abnormal findings of blood chemistry; Z79.82 Long term (current) use of aspirin; Z79.899 Other long term (current) drug therapy
CPT/HCPCS: 36415; 80053; 81001; 83605; 85025; 87040; 87086; 93005; 96365; 96366; 96367; 99284; A9270; G0378; J1956; J2543; J7030; J7040; J7050

== ENCOUNTER 2019-11-06 07:17 | Day surgery (SDC) | payer MEDICARE, OTHER ==
[~2019-11-06 07:17] MED LIST: Lactated Ringers 1,000 ML IV SCH
[2019-11-06] MEDS ORDERED: Ondansetron 4 MG/2 ML SDV ONE (07:21)
[2019-11-06] MEDS ORDERED: Propofol 200 MG/20 ML SDV ONE (07:22)
[2019-11-06] MEDS ORDERED: fentaNYL 100 MCG/2 ML SDV ONE (07:22)
--- NOTE | 2019-11-06 07:53 | PCM.PREANE ---
Preanesthetic Assessment - Anesthesia/Transfusion/Family Hx Anesthesia History: Prior Anesthesia Without Reaction Family History of Anesthesia Reaction: No Transfusion History: No Prior Transfusion(s) Intubation History: Unknown - Review of Systems General: No Symptoms Pulmonary: No Symptoms Cardiovascular: No Symptoms Gastrointestinal: No Symptoms Neurological: No Symptoms Other: Reports: None - Physical Assessment Height: 5 ft 11 in Weight: 81.647 kg ASA Class: 2 Mental Status: Alert & Oriented x3 Airway Class: Mallampati = 2 Dentition: Reports: Implants (multiple upper front), Missing Tooth/Teeth ( multiple upper left) Thyro-Mental Finger Breadths: 3 Mouth Opening Finger Breadths: 3 ROM/Head Extension: Full Lungs: Clear to Auscultation, Normal Respiratory Effort Cardiovascular: Regular Rate, Regular Rhythm - Allergies Allergies/Adverse Reactions: Allergies Allergy/AdvReac Type Severity Reaction Status Date / Time No Known Allergies Allergy Verified 11/01/19 07:32 - Blood Blood Available: No - Anesthesia Plan Pre-Op Medication Ordered: None - Acknowledgements Anesthesia Type Planned: MAC Pt an Appropriate Candidate for the Planned Anesthesia: Yes Alternatives and Risks of Anesthesia Discussed w Pt/Guardian: Yes Pt/Guardian Understands and Agrees with Anesthesia Plan: Yes PreAnesthesia Questionnaire HEENT History: Reports: Hard of Hearing Cardiovascular History: Reports: High Cholesterol, Hypertension Respiratory History: Reports: None Gastrointestinal History: Reports: Hepatitis, Irritable Bowel Syndrome Other Gastrointestinal History: hepatitis in the past, has been cleared. H/O addiction to pain meds(went to rehab in 101) Genitourinary History: Reports: BPH Musculoskeletal History: Reports: Back Pain, Chronic, Fracture Other Musculoskeletal History: hx fx collarbone as a child Neurological History: Reports: None Psychiatric History: Reports: Anxiety, Depression, Other (See Below) ( claustrophobia) Endocrine/Metabolic History: Reports: None Hematologic History: Reports: None Immunologic History: Reports: None Oncologic (Cancer) History: Reports: None Dermatologic History: Reports: None - Infectious Disease History Infectious Disease History: Reports: Hepatitis C (h/o hepatitis C, cleared spontaneously) - Past Surgical History Head Surgeries/Procedures: Reports: None HEENT Surgical History: Reports: Oral Surgery Other HEENT Surgeries/Procedures: dental implants Cardiovascular Surgical History: Reports: None Respiratory Surgical History: Reports: None GI Surgical History: Reports: Colonoscopy (more than 10 years ak- normal) Male Surgical History: Reports: None Endocrine Surgical History: Reports: None Neurological Surgical History: Reports: None Musculoskeletal Surgical History: Reports: None Oncologic Surgical History: Reports: None - SUBSTANCE USE Tobacco Use Within Last Twelve Months: Other (See Below) (chew) Days Per Week of Alcohol Use: 7 Number of Drinks Per Day: 2 Total Drinks Per Week: 14 Recreational Drug Use History: Yes - HOME MEDS Home Medications: Home Meds Aspirin [Children's Aspirin] 81 mg PO DAILY 08/11/17 [History] Melatonin 3 mg PO BEDTIME 08/11/17 [History] Simvastatin [Zocor] 20 mg PO BEDTIME 08/11/17 [History] Losartan [Cozaar] 25 mg PO DAILY #30 tablet 08/13/17 [Rx] Tamsulosin Hcl [IJD: Tamsulosin HCl] 0.4 mg PO DAILY #30 cap.er.po 08/13/17 [Rx] QUEtiapine [SEROquel] 150 mg PO BEDTIME 11/01/19 [History] - CURRENT (IN HOUSE) MEDS Current Meds: Current Medications Lactated Ringer's (Ringers, Lactated) 1,000 mls @ 125 mls/hr IV ASDIRECTED IRINA Discontinued Medications Fentanyl (Sublimaze) Confirm Administered Dose 100 mcg .ROUTE .STK-MED ONE Stop: 11/06/19 07:23 Ondansetron HCl (Zofran) Confirm Administered Dose 4 mg .ROUTE .STK-MED ONE Stop: 11/06/19 07:22 Propofol (Diprivan 20 Ml) Confirm Administered Dose 400 mg .ROUTE .STK-MED ONE Stop: 11/06/19 07:23
--- NOTE | 2019-11-06 09:23 | PCM.OPNOTE ---
- General Post-Op/Procedure Note Date of Surgery/Procedure: 11/06/19 Operative Procedure(s): colonoscopy with biopsy Findings: see [id number] Pre Op Diagnosis: scrn colonoscopy Post-Op Diagnosis: colon polyps and diverticulosis Anesthesia Technique: Moderate Sedation Primary Surgeon: Romain Steward Pathology: 3 small tiny 2mm sessile polyps at distance 95 cm when scope came out Complications: None Condition: Good
--- NOTE | 2019-11-06 09:24 | PCM.POSTAN ---
POST ANESTHESIA ASSESSMENT - MENTAL STATUS Mental Status: Alert - VITAL SIGNS Vital Signs: Last Vital Signs Temp 36.4 C 11/06/19 09:16 Pulse 78 11/06/19 09:16 Resp 16 11/06/19 09:16 BP 100/66 11/06/19 09:16 Pulse Ox 93 L 11/06/19 09:16 - RESPIRATORY Respiratory Status: Respiratory Rate WNL - CARDIOVASCULAR CV Status: Pulse Rate WNL - GASTROINTESTINAL GI Status: No Symptoms - PAIN Pain Score: 0 - POST OP HYDRATION Hydration Status: Adequate & Stable (Awake doing well.)
--- NOTE | 2019-11-06 10:06 | PCM48HPAN ---
Post Anesthesia Note - EVALUATION WITHIN 48HRS OF ANESTHETIC Vital Signs in Normal Range: Yes Patient Participated in Evaluation: Yes Respiratory Function Stable: Yes Airway Patent: Yes Cardiovascular Function Stable: Yes Hydration Status Stable: Yes Pain Control Satisfactory: Yes Nausea and Vomiting Control Satisfactory: Yes Mental Status Recovered: Yes Vital Signs: Last Vital Signs Temp 36.4 C 11/06/19 09:16 Pulse 79 11/06/19 09:26 Resp 13 11/06/19 09:26 BP 109/66 11/06/19 09:26 Pulse Ox 95 11/06/19 09:26 - COMMENTS/OBSERVATIONS Free Text/Narrative:: No anesthesia problems.
--- NOTE | 2019-11-06 12:03 | OR ---
SURGEON: Romain Steward MD DATE OF PROCEDURE: 11/06/2019 PREOPERATIVE DIAGNOSIS: Screening colonoscopy. POSTOPERATIVE DIAGNOSIS: Screening colonoscopy. PROCEDURE PERFORMED: Colonoscopy with biopsy. DESCRIPTION OF PROCEDURE: The patient was taken to the endoscopy room. A time out was called, patient identified, and procedure identified. Diprivan was then administrated. Patient went from awake to sleep, hearing doctor talking or door closing is normal. Perineum inspection and digital examination were then performed. A well- lubricated colonoscope was gently inserted through the rectum, advanced past the rectosigmoid junction, the descending colon, splenic flexure, transverse colon, hepatic flexure, ascending colon, arrived to the cecum. Cecum was identified as dictated in the finding. Then the scope was carefully withdrawn while attention was paid to the mucosal surface for any abnormality. Air will be sucked out during the scope withdrawal. At the rectum, retroflexed to examine any rectal diseases, fistula or hemorrhoids. During mucosal examination, abnormality or polyp was noted; picture taken and biopsy performed. Patient tolerated procedure well. There were no intraoperative complications, and Dr. Steward was present throughout the whole procedure. FINDINGS: 1. The patient is easily sedated with TABLEAU ADMINISTRATOR and Diprivan, the patient is soundly snoring. 2. Bowel prep is average, some liquid stool and some stool ball, likely from diverticulosis, and requiring some irrigation. Colon rather straightforward. Cecum indicated by ileocecal fold, one-to-one indentation, appendiceal orifice, and light emittance was observed. Mucosa examined upon scope pulling out with constant irrigation. The patient has 3 small polyps at distance 95 when scope coming out, around 90 to 95 the area, and all removed with cold biopsies as well as a very small sessile polyp, 2 mm. No other mass, growth, inflammation, stricture, ulceration, or AV malformation. The patient has mild diverticulosis on the left colon. No signs or symptoms of diverticulitis. The patient has moderate internal hemorrhoids and moderate external hemorrhoids. The patient would benefit from repeat colonoscopy 3 years from today because of the 3 polyps or if the polyp pathology change differently or if clinically indicated otherwise. DELANEY / JYOTI /[id number]
== END 2019-11-06 10:00 | disposition home or self-care (01) ==
LOC: MW.SDS 07:17
PROVIDERS: ATTEND Surgery
DX: Z12.11 Encounter for screening for malignant neoplasm of colon (principal); D12.3 Benign neoplasm of transverse colon; K57.30 Diverticulosis of large intestine without perforation or abscess without bleeding; K64.8 Other hemorrhoids; K64.4 Residual hemorrhoidal skin tags; N40.0 Benign prostatic hyperplasia without lower urinary tract symptoms; E78.5 Hyperlipidemia, unspecified; E78.00 Pure hypercholesterolemia, unspecified; I10 Essential (primary) hypertension; M51.36 Other intervertebral disc degeneration, lumbar region; M47.816 Spondylosis without myelopathy or radiculopathy, lumbar region; M48.061 Spinal stenosis, lumbar region without neurogenic claudication; Z79.82 Long term (current) use of aspirin; Z79.899 Other long term (current) drug therapy; Z87.891 Personal history of nicotine dependence
CPT/HCPCS: 45380; 88305; J2405; J2704; J3010; J7120

== ENCOUNTER 2021-01-10 14:55 | Emergency (ER) | payer MEDICARE, OTHER ==
[2021-01-10] MEDS ORDERED: Atropine 0.1 MG/ML 10 ML Syringe IVPUSH ONE (14:56)
[2021-01-10] MEDS ORDERED: Sodium Bicarbonate 8.4% 50 MEQ/50 ML Syringe IVPUSH ONE (15:00)
[2021-01-10] MEDS ORDERED: EPINEPHrine 1:10,000 1 MG/10 ML Syringe IVPUSH ONE ×2 (15:01→15:05)
[2021-01-10] MEDS ORDERED: Calcium Chloride 10% 1 GM/10 ML Syringe IVPUSH ONE (15:03)
[2021-01-10] MEDS ORDERED: EPINEPHrine 1:10,000 1 MG/10 ML Syringe IV ONE (15:05)
[2021-01-10] MEDS ORDERED: Sodium Chloride 0.9% 1,000 ML IV ONE (15:06)
[2021-01-10 15:30] LABS: BLOOD UREA NITROGEN,BUN 11 mg/dL (7.0-18.0); CARBON DIOXIDE,CO2 22.5 mmol/L (21.0-32.0); CHLORIDE,CL 106 mmol/L (98-107); GLUCOSE RANDOM 229 mg/dL (74-106); LIPASE 150 U/L (73-393); SODIUM,NA 145 mmol/L (136-148)
--- NOTE | 2021-01-10 15:43 | CR ---
HISTORY: Post intubation. TECHNIQUE: Portable frontal view the chest. COMPARISON: Chest x-ray 08/11/2017. FINDINGS: Tip of the endotracheal tube is 3 cm above the michele. NG/OG tube tip in the distal esophagus approximately 5 cm above the expected GE junction. No airspace consolidation. No pleural effusion. No pneumothorax within limits of supine position. Pulmonary vasculature is within normal limits. Cardiomediastinal silhouette is within normal limits. IMPRESSION: 1. Endotracheal tube tip 3 cm above the michele. 2. NG/OG tube tip in the distal esophagus. 3. No acute cardiopulmonary abnormality. Dictated by Tuan Brown MD @ 01/10/2021 3:41:[address] Tuan Brown @ Jan 10 2021 3:41PM
--- NOTE | 2021-01-10 15:48 | EDM.PDOC ---
ED HPI GENERAL MEDICAL PROBLEM - General Chief Complaint: Respiratory Problem Stated Complaint: CODE BLUE Time Seen by Provider: 01/10/21 15:11 Source of Information: Reports: Patient History Limitations: Reports: No Limitations - History of Present Illness INITIAL COMMENTS - FREE TEXT/NARRATIVE: Is a 65-year-old male with unknown past medical history brought in by EMS for cardiac arrest. Per EMS patient was at a friend's house when the patient became sleepy and unresponsive the friend started CPR. EMS got there patient had a post they started CPR with audible pulse. They gave 3 epis calcium bicarb and also amiodarone. They states that they did not see a shockable rhythm. Patient was brought to the ED while in the ED patient had a heart rate in the 30s and was given a dose of atropine. Patient rate slightly increased but possible also given. We started CPR again with patient to have these calcium bicarb. Patient pulse returned. Will place patient on the Levophed drip as blood pressure was 100/43. We obtained a EKG did show atrial fibrillation 143 but unclear if this was due to the epinephrine. Patient went transferred out blood pressure was in the 80s over 40s heart rate 100 and was currently on levo drip. We confirmed tube placement for patient with x-ray and sent labs. Patient was accepted 2 [facility] - Related Data Allergies Allergy/AdvReac Type Severity Reaction Status Date / Time No Known Allergies Allergy Verified 11/01/19 07:32 Home Meds: Home Meds Aspirin [Children's Aspirin] 81 mg PO DAILY 08/11/17 [History] Melatonin 3 mg PO BEDTIME 08/11/17 [History] Simvastatin [Zocor] 20 mg PO BEDTIME 08/11/17 [History] Losartan [Cozaar] 25 mg PO DAILY #30 tablet 08/13/17 [Rx] Tamsulosin Hcl [IJD: Tamsulosin HCl] 0.4 mg PO DAILY #30 cap.er.po 08/13/17 [Rx] QUEtiapine [SEROquel] 150 mg PO BEDTIME 11/01/19 [History] Past Medical History HEENT History: Reports: Hard of Hearing Cardiovascular History: Reports: High Cholesterol, Hypertension Respiratory History: Reports: None Gastrointestinal History: Reports: Hepatitis, Irritable Bowel Syndrome Other Gastrointestinal History: hepatitis in the past, has been cleared. H/O addiction to pain meds(went to rehab in 101) Genitourinary History: Reports: BPH Musculoskeletal History: Reports: Back Pain, Chronic, Fracture Other Musculoskeletal History: hx fx lakhwinder as a child Neurological History: Reports: None Psychiatric History: Reports: Anxiety, Depression, Other (See Below) (claustrophobia) Endocrine/Metabolic History: Reports: None Hematologic History: Reports: None Immunologic History: Reports: None Oncologic (Cancer) History: Reports: None Dermatologic History: Reports: None - Infectious Disease History Infectious Disease History: Reports: Hepatitis C (h/o hepatitis C, cleared spontaneously) - Past Surgical History Head Surgeries/Procedures: Reports: None HEENT Surgical History: Reports: Oral Surgery Other HEENT Surgeries/Procedures: dental implants Cardiovascular Surgical History: Reports: None Respiratory Surgical History: Reports: None GI Surgical History: Reports: Colonoscopy (more than 10 years ak- normal) Male Surgical History: Reports: None Endocrine Surgical History: Reports: None Neurological Surgical History: Reports: None Musculoskeletal Surgical History: Reports: None Oncologic Surgical History: Reports: None Social & Family History - Family History Family Medical History: No Pertinent Family History - Caffeine Use Caffeine Use: Reports: Coffee ED ROS GENERAL - Review of Systems Review Of Systems: Unable To Obtain Reason Not Obtained: intubated ED EXAM, CPR - Physical Exam Exam: Not Obtained Respiratory Chest: Other (intubated b/l bs ) #1 Interpretation EKG Date: 01/10/21 Time: 15:08 Rhythm: A-Fib Rate (Beats/Min): 143 ST-T: Normal Course - Orders/Labs/Meds Orders: Active Orders 24 hr Category Date Time Status EKG 12 Lead [EKG Documentation Completion] [RC] STAT Care 01/10/21 15:13 Active Labs: Laboratory Tests 01/10/21 01/10/21 01/10/21 Range/Units 15:01 15:01 15:01 WBC 7.32 (4.0-11.0) K/uL RBC 3.85 L (4.50-5.90) M/uL Hgb 12.4 L (13.0-17.0) g/dL Hct 38.9 (38.0-50.0) % MCV 101.0 H (80.0-98.0) fL MCH 32.2 H (27.0-32.0) pg MCHC 31.9 (31.0-37.0) g/dL RDW Std Deviation 50.6 (28.0-62.0) fl RDW Coeff of Paola 14 (11.0-15.0) % Plt Count 266 (150-400) K/uL MPV 9.70 (7.40-12.00) fL Add Manual Diff YES Neutrophils % (Manual) 36 L (48.0-80.0) % Band Neutrophils % 2 % Lymphocytes % (Manual) 56 H (16.0-40.0) % Monocytes % (Manual) 3 (0.0-15.0) % Eosinophils % (Manual) 3 (0.0-7.0) % Nucleated RBC % 1.1 /100WBC Absolute Seg Neuts 2.6 (1.4-5.7) Band Neutrophils # 0.1 Lymphocytes # (Manual) 4.1 H (0.6-2.4) Monocytes # (Manual) 0.2 (0.0-0.8) Eosinophils # (Manual) 0.2 (0.0-0.7) Nucleated RBCs # 0 K/uL Plt Morphology Comment VBG pH 7.05 L (7.31-7.41) VBG pCO2 78 H (35-45) mmHG VBG pO2 41 H (30-40) mmHG VBG HCO3 21 L (22-30) mEq/L VBG Total CO2 21 L (41-51) mmol/L VBG Base Excess -10.4 L (-3.0-3.0) Lactate 9.7 H* (0.20-2.00) mmol/L Sodium (136-148) mmol/L Potassium (3.5-5.1) mmol/L Chloride (98-107) mmol/L Carbon Dioxide (21.0-32.0) mmol/L BUN (7.0-18.0) mg/dL Creatinine (0.8-1.3) mg/dL Est Cr Clr Drug Dosing Estimated GFR (MDRD) ml/min Glucose (74-106) mg/dL Calcium (8.5-10.1) mg/dL Magnesium (1.8-2.4) mg/dL Total Bilirubin (0.2-1.0) mg/dL AST (15-37) IU/L ALT (14-63) IU/L Alkaline Phosphatase (46-116) U/L Troponin I (0.000-0.056) ng/mL Total Protein (6.4-8.2) g/dL Albumin (3.4-5.0) g/dL Globulin (2.6-4.0) g/dL Albumin/Globulin Ratio (0.9-1.6) Lipase (73-393) U/L Urine Color Urine Appearance Urine pH (5.0-8.0) Ur Specific [place] (1.001-1.035) Urine Protein (NEGATIVE) mg/dL Urine Glucose (UA) (NEGATIVE) mg/dL Urine Ketones (NEGATIVE) mg/dL Urine Occult Blood (NEGATIVE) Urine Nitrite (NEGATIVE) Urine Bilirubin (NEGATIVE) Urine Urobilinogen (<2.0) EU/dL Ur Leukocyte Esterase (NEGATIVE) Urine RBC (0-2/HPF) Urine WBC (0-5/HPF) Ur Epithelial Cells (NONE-FEW) Urine Bacteria (NEGATIVE) Urine Mucus (NONE-MOD) Urine Opiates Screen (NEGATIVE) Ur Oxycodone Screen (NEGATIVE) Urine Methadone Screen (NEGATIVE) Ur Barbiturates Screen (NEGATIVE) Ur Phencyclidine Scrn (NEGATIVE) Ur Amphetamine Screen (NEGATIVE) U Methamphetamines Scrn (NEGATIVE) U Benzodiazepines Scrn (NEGATIVE) U Cocaine Metab Screen (NEGATIVE) U Marijuana (THC) Screen (NEGATIVE) 01/10/21 01/10/21 01/10/21 Range/Units 15:01 15:10 15:10 WBC (4.0-11.0) K/uL RBC (4.50-5.90) M/uL Hgb (13.0-17.0) g/dL Hct (38.0-50.0) % MCV (80.0-98.0) fL MCH (27.0-32.0) pg MCHC (31.0-37.0) g/dL RDW Std Deviation (28.0-62.0) fl RDW Coeff of Paola (11.0-15.0) % Plt Count (150-400) K/uL MPV (7.40-12.00) fL Add Manual Diff Neutrophils % (Manual) (48.0-80.0) % Band Neutrophils % % Lymphocytes % (Manual) (16.0-40.0) % Monocytes % (Manual) (0.0-15.0) % Eosinophils % (Manual) (0.0-7.0) % Nucleated RBC % /100WBC Absolute Seg Neuts (1.4-5.7) Band Neutrophils # Lymphocytes # (Manual) (0.6-2.4) Monocytes # (Manual) (0.0-0.8) Eosinophils # (Manual) (0.0-0.7) Nucleated RBCs # K/uL Plt Morphology Comment VBG pH (7.31-7.41) VBG pCO2 (35-45) mmHG VBG pO2 (30-40) mmHG VBG HCO3 (22-30) mEq/L VBG Total CO2 (41-51) mmol/L VBG Base Excess (-3.0-3.0) Lactate (0.20-2.00) mmol/L Sodium 145 (136-148) mmol/L Potassium 4.0 (3.5-5.1) mmol/L Chloride 106 (98-107) mmol/L Carbon Dioxide 22.5 (21.0-32.0) mmol/L BUN 11 (7.0-18.0) mg/dL Creatinine 1.3 (0.8-1.3) mg/dL Est Cr Clr Drug Dosing TNP Estimated GFR (MDRD) 55.2 ml/min Glucose 229 H (74-106) mg/dL Calcium 8.1 L (8.5-10.1) mg/dL Magnesium 2.3 (1.8-2.4) mg/dL Total Bilirubin 0.2 (0.2-1.0) mg/dL AST 98 H (15-37) IU/L ALT 102 H (14-63) IU/L Alkaline Phosphatase 79 (46-116) U/L Troponin I < 0.050 (0.000-0.056) ng/mL Total Protein 6.1 L (6.4-8.2) g/dL Albumin 3.0 L (3.4-5.0) g/dL Globulin 3.1 (2.6-4.0) g/dL Albumin/Globulin Ratio 1.0 (0.9-1.6) Lipase 150 (73-393) U/L Urine Color YELLOW Urine Appearance CLEAR Urine pH 6.0 (5.0-8.0) Ur Specific [place] 1.015 (1.001-1.035) Urine Protein NEGATIVE (NEGATIVE) mg/dL Urine Glucose (UA) NEGATIVE (NEGATIVE) mg/dL Urine Ketones NEGATIVE (NEGATIVE) mg/dL Urine Occult Blood TRACE-INTACT H (NEGATIVE) Urine Nitrite NEGATIVE (NEGATIVE) Urine Bilirubin NEGATIVE (NEGATIVE) Urine Urobilinogen 0.2 (<2.0) EU/dL Ur Leukocyte Esterase NEGATIVE (NEGATIVE) Urine RBC 0-2 (0-2/HPF) Urine WBC 0-2 (0-5/HPF) Ur Epithelial Cells RARE (NONE-FEW) Urine Bacteria RARE (NEGATIVE) Urine Mucus LIGHT (NONE-MOD) Urine Opiates Screen NEGATIVE (NEGATIVE) Ur Oxycodone Screen NEGATIVE (NEGATIVE) Urine Methadone Screen NEGATIVE (NEGATIVE) Ur Barbiturates Screen NEGATIVE (NEGATIVE) Ur Phencyclidine Scrn NEGATIVE (NEGATIVE) Ur Amphetamine Screen NEGATIVE (NEGATIVE) U Methamphetamines Scrn NEGATIVE (NEGATIVE) U Benzodiazepines Scrn NEGATIVE (NEGATIVE) U Cocaine Metab Screen NEGATIVE (NEGATIVE) U Marijuana (THC) Screen NEGATIVE (NEGATIVE) Meds: Medications Discontinued Medications Generic Name Dose Route Start Last Admin Trade Name Freq PRN Reason Stop Dose Admin Norepinephrine Bitartrate Confirm 01/10/21 15:16 Norepinephr-0.9% Nacl 4 Mg/250 Administered 01/10/21 15:17 Dose 4 mg in 250 mls @ as directed IV .STK-MED ONE Departure - Departure Time of Disposition: 16:04 Disposition: DC/Tfer to Acute Hospital 02 Condition: Good Clinical Impression: Cardiac arrest - Discharge Information *PRESCRIPTION DRUG MONITORING PROGRAM REVIEWED*: Not Applicable *COPY OF PRESCRIPTION DRUG MONITORING REPORT IN PATIENT KELLY: Not Applicable Referrals: PCP,None [Primary Care Provider] - Forms: ED Department Discharge - My Orders Last 24 Hours: My Active Orders 01/10/21 15:13 EKG 12 Lead [EKG Documentation Completion] [RC] STAT - Assessment/Plan Last 24 Hours: My Active Orders 01/10/21 15:13 EKG 12 Lead [EKG Documentation Completion] [RC] STAT Plan: Patient is a 65-year-old male who presents today in cardiac arrest. Patient had also pulses in the ED but was given epi x2 bicarb calcium and placed on a Levophed drip. Patient will be transported to [facility]. We called and spoke to patient father made him aware of transfer.
== END 2021-01-10 15:28 ==
LOC: MW.ED 15:04
DX: I46.9 Cardiac arrest, cause unspecified (principal); E78.00 Pure hypercholesterolemia, unspecified; I10 Essential (primary) hypertension; Z79.82 Long term (current) use of aspirin; Z79.899 Other long term (current) drug therapy
CPT/HCPCS: 36415; 36569; 43752; 71045; 80053; 80305; 81001; 82803; 83605; 83690; 83735; 84484; 85025; 92950; 93005; 99285; J0171; J0461; J7030; 93010; 99284